=== PATIENT | male | born 2000 | race Two or more races ===

== ENCOUNTER → 2020-10-04 | Outpatient (CLI) | payer OTHER | END | disposition home or self-care (01) | LOC: SONOGRAMA 07:34 → MAMO-SONO 07:45 | PROVIDERS: ATTEND Internal Medicine Hepatology | DX: R10.11 Right upper quadrant pain (principal) ==

== ENCOUNTER 2022-09-02 06:47 | Emergency (ER) | payer OTHER ==
[~2022-09-02] VITALS: Ht 172.7 cm; Wt 79.8 kg
== END 2022-09-02 12:11 | disposition home or self-care (01) ==
LOC: ER 06:47
DX: F10.129 Alcohol abuse with intoxication, unspecified (principal); Y90.9 Presence of alcohol in blood, level not specified; R11.2 Nausea with vomiting, unspecified; R10.13 Epigastric pain; Z88.1 Allergy status to other antibiotic agents

== ENCOUNTER 2023-03-14 11:50 | Outpatient (CLI) | payer OTHER | END 2023-03-14 12:04 | disposition home or self-care (01) | LOC: RAD 11:50 | PROVIDERS: ATTEND Pediatrics | DX: J11.1 Influenza due to unidentified influenza virus with other respiratory manifestations (principal) ==